=== PATIENT | male | born 1970 | race Caucasian/White ===

== ENCOUNTER → 2020-12-11 | Outpatient (CLI) | payer OTHER ==
[~2020-12-11] MED LIST: ASPIRIN EC81 MG PO; BUSPIRONE HCL10 MG PO; CRESTOR 10 MG T10 MG PO; ELIQUIS 5 MG TAB5 MG PO; FLECAINIDE ACE100 MG PO; FLECAINIDE ACET50 MG PO; HYDROXYZINE HCL25 MG PO; LOPRESSOR 25 MG25 MG PO; LOW DOSE ASPIRI81 MG PO; NORVASC5 MG PO; SIMVASTATIN10 MG PO; WAL-ZYR10 M1 PO
== END ==
LOC: EXRD 08-22 09:00 → US 08-22 09:00 → EXRD 10:15
DX: R79.89 Other specified abnormal findings of blood chemistry (principal); K76.0 Fatty (change of) liver, not elsewhere classified
CPT/HCPCS: 76705